=== PATIENT | female | born 1995 | race Two or more races ===

== ENCOUNTER 2017-01-29 18:23 | Emergency (ER) | payer MEDICAID ==
[~2017-01-29] VITALS: Ht 162.6 cm; Wt 78.8 kg
[2017-01-29 20:41] LABS: ASPARTATE AMINO TRANSFERASE 17 U/L (15-37); BLOOD UREA NITROGEN 16 mg/dL (7-18)
[2017-01-29 21:39] VITALS: BP 111/70
== END 2017-01-29 21:44 | disposition home or self-care (01) ==
LOC: ED 21:30
DX: R20.2 Paresthesia of skin (principal)
CPT/HCPCS: 36415; 70450; 80053; 85025; 93005; 99285